=== PATIENT | female | born 1985 | race African-American/Black ===

== ENCOUNTER 2018-07-15 01:30 | Inpatient (IN) | payer BC, OTHER ==
[2018-07-15 02:49] VITALS: BMI 31.8
[2018-07-15 02:52] LABS: BASO % 0.4 % (0-2.0); EOS % 0.8 % (0-4.5); HEMATOCRIT 36.4 % (32.4-45.2); HEMOGLOBIN 11.7 GM/dL (10.7-15.3); LYMPH % 11.2 % (8-40); MCH 28.4 pg (25.7-33.7); MEAN CELL VOLUME 88.8 fl (80-96); MEAN PLT VOLUME 10.6 fl (7.5-11.1); MONO % 5.3 % (3.8-10.2); NEUT % 82.3 % (42.8-82.8); PLATELET COUNT 149 K/MM3 (134-434); RDW 14.6 % (11.6-15.6); WHITE BLOOD COUNT 7.9 K/mm3 (4.0-10.0)
[2018-07-15] MEDS ORDERED: DEXTROSE 5%-LACTATED RINGERS 1,000 ML IV SCH ×2 (03:09→05:15)
[2018-07-15] MEDS ORDERED: BUTORPHANOL TARTRATE 2 MG/ML VIAL ONE (03:23)
[2018-07-15] MEDS ORDERED: PROMETHAZINE HCL 25 MG/1 ML VIAL ONE (03:23)
[2018-07-15] MEDS ORDERED: PROMETHAZINE HCL 25 MG/1 ML VIAL IVPUSH ONE (03:30)
[2018-07-15] MEDS ORDERED: AMPICILLIN - 2 GM in SODIUM CHLORIDE 100 ML IVPB ONE (03:30)
[2018-07-15] MEDS ORDERED: BUTORPHANOL TARTRATE 2 MG/ML VIAL IVPUSH ONE (03:30)
[2018-07-15 03:38] LABS: CALCIUM 8.4 mg/dL (8.5-10.1); CREATININE 0.7 mg/dL (0.55-1.3); POTASSIUM 3.6 mmol/L (3.5-5.1)
[2018-07-15] MEDS ORDERED: AMPICILLIN SODIUM 2 GM VIAL ONE (03:51)
[2018-07-15 04:30] LABS: INR 0.96 (0.83-1.09); PROTHROMBIN TIME (PATIENT) 11.3 SEC (9.7-13.0)
[2018-07-15 04:32] LABS: ACTIVATED PTT 33.5 SECONDS (25.2-36.5)
--- NOTE | 2018-07-15 05:22 | HP ---
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: No: Alzheimer's, CVA, Dementia, Migraine, Multiple Sclerosis, Peripheral Neuropathy, Parkinson's, Seizure, Syncope, TIA, Vertigo, Other Cardiovascular: No: AFIB, Aneurysm, Aortic Insufficiency, Aortic Stenosis, CAD, CHF, Deep Vein Thrombosis, HTN, Hyperlipdemia, AR, Mitral Insufficiency, Mitral Stenosis, Murmur, Pulmonary Hypertension, Other Pulmonary: No: Asthma, Bronchitis, Cancer, COPD, O2 Dependent, Pneumonia, Previously Intubated, Pulmonary Embolus, Pulmonary Fibrosis, Sleep Apnea, Other Gastrointestinal: No: Ascites, Cancer, Constipation, Crohn's Disease, Diverticulitis, Diverticulosis, Esophageal Varices, Gastritis, GERD, GI Bleed, Hemorrhoids, Hiatal Hernia, Inflamatory Bowel Disease, Irritable Bowel Disease, Pancreatitis, Peptic Ulcer Disease, Ulcerative Colitis, Other Hepatobiliary: No: Cirrhosis, Cholelithiasis, Cholecystitis, Choledocholithiasis , Hepatitis A, Hepatitis B, Hepatitis C, Other Renal/: No: Renal Failure, Renal Inusuff, BPH, Cancer, Hematuria, Hemodialysis , Neurogenic Bladder, Renal Calculi, UTI, Other Reproductive: No: Ectopic , Endometriosis, Fibroids, PID, Polycystic Ovary Syndrome, Postmenopausal, Other ...: 1 ...Para: 0 ...Term: 0 ...: 0 ...Spon : 0 ...Induced : 0 ...Multiple Gestation: 0 ... Weeks Gestation by Dates: 40.2 ...EDC by Dates: 07/13/18 Heme/Onc: No: Anemia, B12 Deficiency, Bleeding Disorder, Cancer, Current Chemotherapy, Current Radiation Therapy, Hemochromatosis, Hypercoaguable State, Myeloproliferative Synd, Sickle Cell Disease, Sickle Cell Trait, Thrombocytopenia, Other Infectious Disease: No: AIDS, C-Diff, Herpes Zoster, HIV, MRSA, STD's, Tuberculosis, VREF, Other Psych: No: Addictions, Anxiety, Bipolar, Depression, Panic, Psychosis, Schizophrenia, Other Musculoskeletal: No: Bursitis, Chronic low back pain, Hemiparesis, Hemiplegia, Osteoarthritis, Paraplegia, Other Rheumatology: No: Fibromyalgia, Gout, Lupus, Rheumatoid Arthritis, Sarcoidosis, Vasculitis, Other ENT: No: Allergic Rhinitis, Sinusitis, Other Endocrine: No: Sanju's Disease, Auburn's Disease, Diabetes Insipidus, Diabetes Mellitus, Hyperparathyroidism, Hyperthyroidism, Hypothyroidism, Osteopenia, SIADH, Other Dermatology: No: Basal Cell, Cellulitis, Eczema, Melanoma, Psoriasis, Squamous Cell, Other - Past Surgical History Past Surgical History: No: None, AAA Repair, AICD, Amputation, Appendectomy, Arthrosocopy, AV Fistula/Graft, Bariatric Surgery, Breast Biopsy, Bypass, CABG, Carotid Endarterectomy, Cataract Removal, Cholecystectomy, Colectomy, Colonoscopy, Colostomy, Craniotomy, , Cystectomy, Hernia Repair, Hysterectomy, Ileal Conduit, Ileosotomy, Joint Replacement, Kidney Transplant, Laminectomy, Liver Transplant, Mastectomy, Nephrectomy, Oopherectomy, Orchiectomy, Permanent Pacemaker, Prostatectomy, Splenectomy, Stent, Thoracotomy , TURP, Tonsillectomy, Tubal Ligation, Upper Endoscopy, Valve Replacement, Vasectomy, Vein Stripping/Ligation Hx Myomectomy: No Hx Transabdominal Cerclage: No - Advance Directives Advance Directives: No: Living Will, Health Care Proxy, DNR, Organ Donor, Tissue Donor, MOLST - Smoking History Smoking history: Never smoked Have you smoked in the past 12 months: No - Alcohol/Substance Use Hx Alcohol Use: No History of Substance Use: reports: None. denies: Cocaine, Heroin, Marijuana, Prescription, Tranquilizers - Social History Usual Living Arrangement: Yes: With Spouse ADL: Independent History of Recent Travel: No Home Medications - Allergies Allergies/Adverse Reactions: Allergies Allergy/AdvReac Type Severity Reaction Status Date / Time No Known Allergies Allergy Verified 07/15/18 02:36 - Home Medications Home Medications: Ambulatory Orders Vitamins (Sjr) - 1 tab PO DAILY 07/15/18 Family Disease History - Family Disease History Family History: Unremarkable Review of Systems - Review of Systems Constitutional: denies: No Symptoms, Chills, Diaphoresis, Fever, Lethargy, Loss of Appetite, Malaise, Night Sweats, Unintentional Wgt. Loss, Weakness, Other Eyes: denies: No Symptoms, Blind Spots, Blurred Vision, Double Vision, Eye Pain , Floaters, Photophobia, Recent Change in Vision, Other HENT: denies: No Symptoms, Difficult Swallowing, Ear Discharge, Ear Pain, Epistaxis, Gingival Bleeding, Hearing Loss, Mouth Swelling, Nasal Congestion, Ocular Prosthesis, Throat Pain, Toothache, Ringing in Ears, Other Neck: denies: No Symptoms, Decreased ROM, Lumps, Pain on Movement, Stiffness, Swollen Glands, Tenderness, Other Cardiovascular: denies: No Symptoms, Chest Pain, Edema, Palpitations, Shortness of Breath, Other Respiratory: denies: No Symptoms, Cough, Exercise Intolerance, Hemoptysis, Orthopnea, PND, Snoring, SOB, SOB on Exertion, Wheezing, Other Gastrointestinal: denies: No Symptoms, Abdominal Pain, Bloating, Constipation, Diarrhea, Dysphagia, Indigestion, Melena, Nausea, Rectal Bleeding, Vomiting, Vomiting Blood, Other Genitourinary: denies: No Symptoms, Burning, Discharge, Dysuria, Flank Pain, Frequency, Hematuria, Incontinence, Lesions, Menses, Pain, Testicular Mass, Testicular Pain, Testicular Swelling, Urgency, Vaginal Bleeding, Other Breasts: denies: No Symptoms Reported, See HPI, Breast Implants, Discharge from Nipple, Lumps, Pain, Skin Changes, Other Musculoskeletal: denies: No Symptoms, Back Pain, Crepitus, Decreased ROM, Extremity Pain, Joint Pain, Joint Swelling, Muscle Pain, Muscle Cramps, Muscle Weakness, Other Integumentary: denies: No Symptoms, Blister, Bruising, Change in Color, Eczema, Erythema, Incision, Lesions, Lump, Pallor, Pruritis, Rash, Wound, Other Neurological: denies: No Symptoms, Change in LOC, Change in Speech, Confusion, Dizziness, Headache, Incoordination, Numbness, Parasthesia, Pre-Existing Deficit , Seizure, Syncope, Tremors, Unsteady Gait, Weakness, Other Endocrine: denies: No Symptoms, Excessive Sweating, Flushing, Increased Hunger, Increased Thirst, Intolerance to Cold, Intolerance to Heat, Unexplained Weight Gain, Unexplained Weight Loss, Other Hematology/Lymphatic: denies: No Symptoms, Easily Bruised, Excessive Bleeding, Swollen Glands, Other Psychiatric: denies: No Symptoms, Altered Sleep Pattern, Anxiety, Depression, Hallucinations, Panic, Paranoia, Suicidal, Other Physical Exam - Maternity Vital Signs: Vital Signs Temperature 98.6 F 07/15/18 05:00 Pulse Rate 60 07/15/18 05:00 Respiratory Rate 20 07/15/18 05:00 Blood Pressure 134/75 07/15/18 05:00 O2 Sat by Pulse Oximetry (%) Constitutional: Yes: Well Nourished, No Distress, Calm Eyes: Yes: WNL, Conjunctiva Clear, EOM Intact HENT: Yes: WNL, Atraumatic, Normocephalic Neck: Yes: WNL, Supple, Trachea Midline Cardiovascular: Yes: WNL, Regular Rate and Rhythm Lungs: Clear to auscultation, Normal air movement, Other Breast(s): Yes: WNL - Abdominal Exam/OB Number of Fetuses: Single Presentation: Vertex Contractions: Yes Regularity: Irregular Intensity: Moderate Monitor Mode: External Heart Rate (range): 130 Heart Rate Location: [facility] Category: I Accelerations: Uniform Decelerations: None - Vaginal Exam/OB Vaginal Bleediing: No Speculum Exam: No Dilatation (cm): 4 Effacement (%): 70 Amniotic Membrane Status: Intact Presentation: Vertex/Position - Physical Exam Musculoskeletal: Yes: WNL Extremities: Yes: WNL Edema: Yes Edema: LUE: 1+, RUE: 1+, LLE: 1+, RLE: 1+ Integumentary: Yes: WNL Deep Tendon Reflex Grade: Absent 0 ...Motor Strength: WNL Psychiatric: Yes: WNL - Labs Lab Results: CBC, BMP 07/15/18 02:30 07/15/18 02:30 Hemorrhage Risk Assessment - Risk Factors Risk Score: 0 Risk Level: Low Risk Problem List - Problems (1) Vaginal delivery Code(s): O80 - ENCOUNTER FOR FULL-TERM UNCOMPLICATED DELIVERY Assessment/Plan anticipate normal labor, with pitocin and epidural
[2018-07-15] MEDS ORDERED: AMPICILLIN SODIUM 1 GM VIAL ONE ×2 (07:27→16:44)
[2018-07-15] MEDS: AMPICILLIN - 1 GM in SODIUM CHLORIDE 100 ML IVPB SCH ×3 (07:30→15:30)
[2018-07-15] MEDS ORDERED: FENTANYL/BUPIVACAINE/NS/PF - PCEA - 50 ML DISP.SYRIN EP ONE ×2 (08:13→13:34)
[2018-07-15] MEDS ORDERED: NALOXONE HCL 0.4 MG/ML VIAL IVPUSH PRN (08:58)
[2018-07-15] MEDS ORDERED: OXYTOCIN 30 UNITS in 0.9% NS 30 UNIT/500 ML INFUS.BAG IVPB SCH (09:00)
[2018-07-15] MEDS ORDERED: FENTANYL/BUPIVACAINE/NS/PF - PCEA - 50 ML DISP.SYRIN EP SCH (09:00)
[2018-07-15] MEDS ORDERED: OXYTOCIN 30 UNITS in 0.9% NS 30 UNIT/500 ML INFUS.BAG IVPB ONE (09:47)
[2018-07-15] MEDS ORDERED: TUBERCULIN PPD 5 TU/0.1ML SYRINGE (IN PATIENT USE ONLY) ID ONE (10:00)
[2018-07-15] MEDS ORDERED: ELECTROLYTE-148 SOLN 1,000 ML IV SCH (10:45)
[2018-07-15] MEDS ORDERED: OXYTOCIN 20 UNITS in 0.9% NS 20 UNIT/1,000 ML INFUS.BAG IV ONE ×2 (15:44→19:31)
--- NOTE | 2018-07-15 17:41 | PN ---
Progress Note (short form) - Note Progress Note: cervix 4 cm 70 %,-1, nst cat 1 , continue labor by herself, stadol given Problem List - Problems (1) Vaginal delivery Code(s): O80 - ENCOUNTER FOR FULL-TERM UNCOMPLICATED DELIVERY
--- NOTE | 2018-07-15 17:44 | PN ---
Progress Note (short form) - Note Progress Note: cervix 4 cm 80%-1, cat 1 nst, at 8 am, for epidural continue labor, augment with pitocin after epidural Problem List - Problems (1) Vaginal delivery Code(s): O80 - ENCOUNTER FOR FULL-TERM UNCOMPLICATED DELIVERY
--- NOTE | 2018-07-15 17:45 | PN ---
Progress Note (short form) - Note Progress Note: cervix 6 cm, 0 station, 90% , on pitocin , uc q3, comfort w epidural , 1pm Problem List - Problems (1) Vaginal delivery Code(s): O80 - ENCOUNTER FOR FULL-TERM UNCOMPLICATED DELIVERY
--- NOTE | 2018-07-15 17:46 | PN ---
Progress Note (short form) - Note Progress Note: 330 pm, fully dilated , uc q 3 m, pushing soon, off epidural Problem List - Problems (1) Vaginal delivery Code(s): O80 - ENCOUNTER FOR FULL-TERM UNCOMPLICATED DELIVERY
--- NOTE | 2018-07-15 17:50 | PN ---
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
[2018-07-15] MEDS ORDERED: METHYLERGONOVINE MALEATE 0.2 MG/1 ML AMP IM PRN (17:51)
[2018-07-15] MEDS ORDERED: BISACODYL 10 MG SUPP.RECT RC PRN (17:51)
[2018-07-15] MEDS ORDERED: BENZOCAINE 20% 57 GM BOTTLE TP PRN (17:51)
[2018-07-15] MEDS ORDERED: BENZOCAINE 28 GM HEMORRHOIDAL OINTMENT TP PRN (17:51)
[2018-07-15] MEDS ORDERED: oxyCODONE HCL 5 MG TABLET PO PRN (17:51)
[2018-07-15] MEDS ORDERED: OXYTOCIN 20 UNITS in 0.9% NS 20 UNIT/1,000 ML INFUS.BAG IV SCH (18:00)
[2018-07-15] MEDS ORDERED: ACETAMINOPHEN 325 MG TABLET (FP) ONE (19:16)
[2018-07-15] MEDS ORDERED: IBUPROFEN 600 MG TABLET (FP) PO ONE (19:16)
[2018-07-15] MEDS: ACETAMINOPHEN 325 MG TABLET (FP) PO PRN (19:20)
[2018-07-15] MEDS: IBUPROFEN 600 MG TABLET (FP) PO PRN (19:20)
[2018-07-16] MEDS: ACETAMINOPHEN 325 MG TABLET (FP) PO PRN ×3 (06:09→22:18)
[2018-07-16] MEDS: IBUPROFEN 600 MG TABLET (FP) PO PRN ×3 (06:10→22:18)
[2018-07-16 07:52] LABS: BASO % 0.4 % (0-2.0); EOS % 1.5 % (0-4.5); HEMATOCRIT 32.8 % (32.4-45.2); HEMOGLOBIN 10.7 GM/dL (10.7-15.3); LYMPH % 12.5 % (8-40); MCH 28.7 pg (25.7-33.7); MCHC 32.6 g/dl (32.0-36.0); MEAN CELL VOLUME 88.1 fl (80-96); MEAN PLT VOLUME 10.5 fl (7.5-11.1); MONO % 7.1 % (3.8-10.2); NEUT % 78.5 % (42.8-82.8); PLATELET COUNT 133 K/MM3 (134-434); RBC 3.72 M/mm3 (3.60-5.2); RDW 14.7 % (11.6-15.6); WHITE BLOOD COUNT 9.3 K/mm3 (4.0-10.0)
[2018-07-16] MEDS ORDERED: DIPHTH,PERTUSS(ACELL),TET 0.5 ML DISP.SYRIN IM ONE (10:00)
[2018-07-16] MEDS: AMPICILLIN - 1 GM in SODIUM CHLORIDE 100 ML IVPB SCH (10:25)
--- NOTE | 2018-07-16 14:45 | PN ---
Post Progress Note - Subjective Subjective: pt is doing well, Post Day: 1 Type of Delivery: Vital Signs: Vital Signs Temperature 98.3 F 07/16/18 14:23 Pulse Rate 60 07/16/18 14:23 Respiratory Rate 20 07/16/18 14:23 Blood Pressure 134/57 L 07/16/18 14:23 O2 Sat by Pulse Oximetry (%) 100 07/15/18 17:45 wnl Breast Exam: Yes: Soft Uterus: Yes: Fundus Firm, Fundus below umbilicus Incision: Yes: Dressing dry and intact, Sutures intact Abdomen/GI: Yes: Abdomen soft, Tolerating PO Lochia: Yes: Serosa Lochia, amount: Small Extremities: Yes: Calves non-tender Perineum: Yes: Episiotomy Activity: Ambulating - Labs Labs: CBC WBC 9.3 K/mm3 (4.0-10.0) 07/16/18 06:50 RBC 3.72 M/mm3 (3.60-5.2) 07/16/18 06:50 Hgb 10.7 GM/dL (10.7-15.3) 07/16/18 06:50 Hct 32.8 % (32.4-45.2) 07/16/18 06:50 MCV 88.1 fl (80-96) 07/16/18 06:50 MCH 28.7 pg (25.7-33.7) 07/16/18 06:50 MCHC 32.6 g/dl (32.0-36.0) 07/16/18 06:50 RDW 14.7 % (11.6-15.6) 07/16/18 06:50 Plt Count 133 K/MM3 (134-434) L 07/16/18 06:50 MPV 10.5 fl (7.5-11.1) 07/16/18 06:50 Absolute Neuts (auto) 7.3 K/mm3 (1.5-8.0) 07/16/18 06:50 Neutrophils % 78.5 % (42.8-82.8) 07/16/18 06:50 Lymphocytes % 12.5 % (8-40) 07/16/18 06:50 Monocytes % 7.1 % (3.8-10.2) 07/16/18 06:50 Eosinophils % 1.5 % (0-4.5) D 07/16/18 06:50 Basophils % 0.4 % (0-2.0) 07/16/18 06:50 Nucleated RBC % 0 % (0-0) 07/16/18 06:50 wnl Problem List - Problems (1) Vaginal delivery Code(s): O80 - ENCOUNTER FOR FULL-TERM UNCOMPLICATED DELIVERY Assessment/Plan doing well, will dc pt home tomorrow
--- NOTE | 2018-07-16 14:48 | DS ---
Physical Exam-GLASS EDGER Vital Signs: Vital Signs Temperature 98.3 F 07/16/18 14:23 Pulse Rate 60 07/16/18 14:23 Respiratory Rate 20 07/16/18 14:23 Blood Pressure 134/57 L 07/16/18 14:23 O2 Sat by Pulse Oximetry (%) 100 07/15/18 17:45 wnl Constitutional: Yes: Well Nourished, No Distress, Calm Eyes: Yes: WNL, Conjunctiva Clear, EOM Intact HENT: Yes: WNL, Atraumatic, Normocephalic Neck: Yes: WNL, Supple, Trachea Midline Cardiovascular: Yes: WNL, Regular Rate and Rhythm Respiratory: Yes: WNL, Regular, CTA Bilaterally Gastrointestinal: Yes: WNL, Normal Bowel Sounds, Soft ...Rectal Exam: Yes: WNL Renal/: Yes: WNL Pelvis: Yes: WNL External Genitalia: Yes: Normal Internal Exam Deferred: Yes Vaginal Exam: Yes: Normal Cervix: Yes: Normal Uterus: Yes: Normal Adnexa: Normal: Left, Right, Bilateral ....Post : Yes: Uterus firm, Uterus non-tender Breast(s): Yes: WNL Musculoskeletal: Yes: WNL Extremities: Yes: WNL Edema: LUE: 1+, RUE: 1+, LLE: 1+, RLE: 1+ Integumentary: Yes: WNL Wound/Incision: Yes: Clean/Dry, Well Approximated Neurological: Yes: WNL, Alert, Oriented ...Motor Strength: WNL Psychiatric: Yes: WNL, Alert, Oriented Labs: CBC, BMP 07/16/18 06:50 07/15/18 02:30 Delivery - Delivery Vaginal Delivery: No Problems Maneuvers: none Type of Anesthesia: Epidural Episiotomy/Laceration: Periurethral Extnsion/lac, 1st degree EBL (cc): 200 Delivery, Single - Stages of Labor Date 1st Stage Initiatied: 07/15/18 Time 1st Stage Initiated: 03:10 Date 2nd Stage Initiated: 07/15/18 Time 2nd Stage Initiated: 15:36 Date of Delivery: 07/15/18 Time of Delivery: 17:02 Time Placenta Delivered: 17:05 Placenta: Yes: Spontaneous - Condition of Infant Photovoltaic Installation Technician/Scrum Coach Present: No Gender: Female Weight: 3.118 kg Position: Right, OA Total Hours ROM (Hrs/Mins): 4 hrs 20 mins - 1 Minute Total Score: 9 5 Minutes Total Score: 9 - [place] Feeding Plan Initial Plan: Elected not to breastfeed exclusively throughout hospitalization Benefits of Exclusively reinforced: Yes Discharge Summary Reason For Visit: ADMIT LABOR Current Active Problems Vaginal delivery (Acute) - Instructions - Home Medications Comprehensive Discharge Medication List: Ambulatory Orders Vitamins (Sjr) - 1 tab PO DAILY 07/15/18
[2018-07-16] MEDS: WITCH HAZEL 50% (TUCKS) 40 PAD/JAR PAD TP PRN ×2 (17:21→22:21)
[2018-07-16] MEDS ORDERED: SENNOSIDES/DOCUSATE COMBO (SENNA PLUS) TABLET (UD) PO PRN (22:00)
[2018-07-17 13:22] VITALS: BP 124/68; PULSE 59; TEMP 97.4
== END 2018-07-17 13:30 | disposition home or self-care (01) | DRG 807 ==
LOC: JLDR 01:30 → J3W 20:00
PROVIDERS: ADMIT Obstetrics & Gynecology; ATTEND Obstetrics & Gynecology
PROC: 0HQ9XZZ Repair Perineum Skin, External Approach (ICD-10-PCS; principal; 2018-07-15)
PROC: 10E0XZZ Delivery of Products of Conception, External Approach (ICD-10-PCS; 2018-07-15)
DX: O48.0 Post-term pregnancy (principal); Z37.0 Single live birth; O70.0 First degree perineal laceration during delivery; Z3A.40 40 weeks gestation of pregnancy
CPT/HCPCS: 36415; 59409; 71046-TC-FY; 80048; 85025; 85610; 85730; 86593; 86762; 86850; 86900; 86901; 87389; 90715

== ENCOUNTER 2019-02-01 05:11 | Day surgery (SDC) | payer BC, OTHER ==
[2019-01-25 16:10] VITALS: BMI 28.0
[2019-02-01] MEDS ORDERED: LIDOCAINE HCL 1%, 10 MG/ML (20ML VIAL) ONE (07:20)
[2019-02-01] MEDS ORDERED: BUPIVACAINE HCL/PF 0.5% (5 MG/ML) 30 ML VIAL IJ ONE ×3 (07:21→08:42)
[2019-02-01] MEDS ORDERED: PROPOFOL 20 ML ONE ×2 (07:32→08:59)
[2019-02-01] MEDS ORDERED: MIDAZOLAM HCL 2 MG/2 ML SINGLE DOSE VIAL ONE (07:33)
[2019-02-01] MEDS ORDERED: SUCCINYLCHOLINE CHLORIDE 200 MG/10 ML SYRINGE ONE (07:33)
[2019-02-01] MEDS ORDERED: DEXAMETHASONE SOD PHOSPHATE 4 MG/1 ML VIAL ONE (07:46)
[2019-02-01] MEDS ORDERED: LIDOCAINE HCL/PF 2% SDV 5ML VIAL ONE (07:46)
[2019-02-01] MEDS ORDERED: KETOROLAC TROMETHAMINE 30 MG/1 ML VIAL ONE (07:46)
[2019-02-01] MEDS ORDERED: LIDOCAINE HCL 1%, 10 MG/ML (20ML VIAL) NR ONE ×2 (08:26→08:42)
[2019-02-01] MEDS ORDERED: ROCURONIUM BROMIDE 50 MG/5 ML SYRINGE ONE (08:30)
[2019-02-01] MEDS ORDERED: ceFAZolin SODIUM 1 GM VIAL ONE (08:33)
[2019-02-01] MEDS ORDERED: SODIUM CHLORIDE 0.9% P/F 10 ML VIAL IJ ONE (08:33)
[2019-02-01] MEDS ORDERED: ceFAZolin 2 GRAM PREMIX BAG IVPB ONE (08:37)
--- NOTE | 2019-02-01 09:13 | OP ---
Operative Note - Note: Operative Date: 02/01/19 Pre-Operative Diagnosis: right wrist mass, likely ganglion Operation: excision mass right wrist Post-Operative Diagnosis: Same as Pre-op Surgeon: Ye Norman [place] Cutter: Warren Walden Anesthesiologist/RESEARCH STATISTICIAN: Omar Bravo Anesthesia: General, Local Specimens Removed: mass, likely ganglion Estimated Blood Loss (mls): 0 Drains, Volume Out (mls): 0 Blood Volume Replaced (mls): 0 Fluid Volume Replaced (mls): 700 Operative Report Dictated: Yes
--- NOTE | 2019-02-01 09:38 | HP ---
Satellite [facility] - Chief Complaint Chief Complaint: right wrist mass - Past Medical History Allergies/Adverse Reactions: Allergies Allergy/AdvReac Type Severity Reaction Status Date / Time No Known Allergies Allergy Verified 01/25/19 16:04 ...LMP: 12/24/18 - Current Medications Current Medications: Home Medications Medication Instructions Recorded Hydrocodone/Acetaminophen 1 - 2 tab PO TID PRN #20 tablet 02/01/19 [Hydrocodone-Acetamin 5-325 mg] MDD 6 Satellite Physical Exam - Physical Examination Vital Signs: Vital Signs Period Temp Pulse Resp BP Sys/Koenig Pulse Ox Last 24 Hr 97.8 F-98.2 F 58-68 13-20 115-128/75-82 8-100 General Appearance: Well Nourished, Well Developed, Alert & Oriented x3 ENT: Clear Lung: Normal air movement Extremities: Other (right wrist- + mass, nvi) Neurological: Intact, Alert, Oriented [place]ellite Impression/Plan - Impression/Plan Impression: right wrist ganglion cyst Operative Procedure: right wrist ganglion cyst excision Date to be Performed: 02/01/19
[2019-02-01 10:06] VITALS: TEMP 97.7
--- NOTE | 2019-02-01 10:59 | OP ---
DATE OF OPERATION: 02/01/2019 PREOPERATIVE DIAGNOSIS: Mass, right wrist likely ganglion cyst. POSTOPERATIVE DIAGNOSIS: Mass, right wrist likely ganglion cyst. PROCEDURE: Excision mass, right wrist likely ganglion cyst. SURGEON: Ye Norman MD WINDING OPERATOR: Warren Walden MD ANESTHESIA: CHEPE Stone, LMA anesthesia with local injection of 10 mL 0.5% Marcaine, 1% lidocaine mix. DRAINS: None. COMPLICATIONS: None. SPECIMEN: Mass, right wrist. BLOOD LOSS: None. BLOOD GIVEN: None. FLUID REPLACEMENT: 700 mL. DESCRIPTION OF PROCEDURE: This patient is a 33-year-old female with a preoperative diagnosis of a mass on the dorsal aspect of the right wrist. The patient understands she will have a scar. There is a very small chance of recurrence of this mass at this location. The patient was brought to the operating room. Peripheral IV place. IV sedation given, 2 g of IV Ancef were given. LMA anesthesia was induced. The entire case was done under 3.8 loupe magnification. A longitudinal incision was marked out with a marking pen, 10 mL 0.5% Marcaine, 1% lidocaine mix was injected in and around the surgical excision. The right upper extremity was elevated, exsanguinated with an Esmarch bandage and tourniquet inflated to 250 mmHg. A longitudinal incision was made with a No. 15 scalpel blade. Subcutaneous hemostasis achieved with a bipolar. Circumferential dissection was done with Littler scissors. Weitlaner retractor was placed into the wound. There was a lot of extensor tendon tenosynovitis. This was removed as part of the specimen. Then exposed a mass coming up from between and underneath the extensor tendons. Extensor tendons were retracted in a radial and ulnar direction with the Weitlaner retractors further exposing the mass. Circumferential dissection was done. I found the stalk. It was decapitated at its base at the dorsal wrist capsule and cauterized. The area was copiously irrigated and washed out. I explored the area. There was some additional extensor tenosynovium that was removed. Otherwise, there was no other noni mass. The area was copiously irrigated and washed out, dried. The deep dermal layer was closed with 4-0 undyed Vicryl, and final skin reapproximation was done with a running subcuticular 4-0 Biosyn stitch. The area was then washed and dried, covered with Steri-Strips, 4 x 4 gauze, Webril, fluffs, and Coban. The tourniquet was taken down after a total tourniquet time of about 20 minutes. There were no complications during the case. The patient tolerated the procedure quite well and was brought to the ambulatory recovery room in stable condition. Kosta [id number]
[2019-02-01] MEDS ORDERED: oxyCODONE HCL 5 MG TABLET PO PRN ×2 (12:06)
[2019-02-01] MEDS ORDERED: ONDANSETRON 4 MG/2 ML VIAL IVPUSH PRN (12:06)
[2019-02-01] MEDS ORDERED: LACTATED RINGERS SOLUTION 1,000 ML IV SCH (12:15)
[2019-02-01 15:59] VITALS: BP 130/58; PULSE 76
--- NOTE | 2019-02-02 15:01 | PATH ---
Surgical Pathology Report Patient Name: RODRÍGUEZ DONG [facility]. Rec. #: [id number] /Age/Gender: 1985 (Age: 33) / F Account: [id number] Location: [facility] SURGICAL Taken: 02/01/2019 Received: 02/01/2019 Reported: 02/02/2019 Physicians: Warren Walden M.D. Specimen(s) Received RIGHT GANGLION CYST Clinical History Right ganglion cyst Final Diagnosis GANGLION CYST, RIGHT, EXCISION: DENSE FIBROCONNECTIVE TISSUE WITH FOCAL SYNOVIAL CELL LINING AND FIBROADIPOSE TISSUE COMPATIBLE WITH GANGLION CYST. Electronically Signed Radha Toribio M.D. Gross Description Received in formalin labeled "right ganglion cyst," is a 2.2 x 2.0 x 0.3 cm aggregate of dolan-yellow portions of soft tissue, possibly containing a cyst. The specimen is submitted in toto in one cassette. /02/01/201902/01/2019
== END 2019-02-01 15:59 | disposition home or self-care (01) ==
LOC: JASU-SURG 05:11
PROVIDERS: ATTEND Orthopaedic Surgery
PROC: 0LB50ZZ Excision of Right Lower Arm and Wrist Tendon, Open Approach (ICD-10-PCS; principal; 2019-02-01 08:00)
DX: M67.431 Ganglion, right wrist (principal)
CPT/HCPCS: 84703; 94760